=== PATIENT | male | born 1955 | race African-American/Black ===

== ENCOUNTER 2021-09-18 11:29 | Emergency (ER) | payer OTHER, MEDICAID ==
[~2021-09-18] VITALS: Ht 182.9 cm; Wt 100.0 kg
[2021-09-18 13:15] VITALS: BP 104/70
[2021-09-18] MEDS ORDERED: KETOROLAC 60MG/2ML VIAL IM ONE (13:15)
== END 2021-09-18 13:54 | disposition home or self-care (01) ==
LOC: ER 11:29
DX: M54.16 Radiculopathy, lumbar region (principal); M79.662 Pain in left lower leg; M54.30 Sciatica, unspecified side; I50.9 Heart failure, unspecified; I25.10 Atherosclerotic heart disease of native coronary artery without angina pectoris
CPT/HCPCS: 96372; 99283; J1885

== ENCOUNTER 2022-03-25 12:20 | Emergency (ER) | payer OTHER, MEDICAID ==
[~2022-03-25] VITALS: Ht 180.3 cm; Wt 91.0 kg
[2022-03-25] MEDS ORDERED: KETOROLAC 60MG/2ML VIAL IM ONE (12:45)
[2022-03-25 12:47] VITALS: BP 146/88
[2022-03-25] MEDS ORDERED: NAPR-1176 MT (13:17)
== END 2022-03-25 14:47 | disposition home or self-care (01) ==
LOC: ER 12:20
DX: M54.9 Dorsalgia, unspecified (principal); I25.10 Atherosclerotic heart disease of native coronary artery without angina pectoris; I50.9 Heart failure, unspecified; M54.30 Sciatica, unspecified side
CPT/HCPCS: 96372; 99283; J1885

== ENCOUNTER 2022-06-05 01:51 | Emergency (ER) | payer OTHER, MEDICAID ==
[~2022-06-05] VITALS: Ht 177.8 cm; Wt 104.0 kg
[~2022-06-05 01:51] MED LIST: NAPR-1176 MT
[2022-06-05] MEDS ORDERED: KETOROLAC 60MG/2ML VIAL IM ONE (02:30)
[2022-06-05 02:48] VITALS: BP 133/73
== END 2022-06-05 02:47 | disposition home or self-care (01) ==
LOC: ER 01:51
DX: M54.16 Radiculopathy, lumbar region (principal); I50.9 Heart failure, unspecified
CPT/HCPCS: 96372; 99283; J1885

== ENCOUNTER 2022-09-17 13:30 | Emergency (ER) | payer OTHER, MEDICAID ==
[~2022-09-17] VITALS: Ht 177.8 cm; Wt 100.0 kg
[2022-09-17 13:39] VITALS: BP 205/114
== END 2022-09-17 21:51 | disposition left against medical advice (07) ==
LOC: ER 13:30
DX: Z53.21 Procedure and treatment not carried out due to patient leaving prior to being seen by health care provider (principal)